=== PATIENT | female | born 1965 | race Caucasian/White ===

== ENCOUNTER 2020-04-23 12:42 | Outpatient (CLI) | payer OTHER, MEDICAID, SELFPAY ==
[2020-04-23 13:25] LABS: Basophils Percent Auto 0.6 % (0.2-1.2); Eosinophils Absolute Auto 0.2 K/mm3 (0-0.3); Eosinophils Percent Auto 3.3 % (0-4.4); Hematocrit 41.5 % (37.0-47.0); Hemoglobin 13.1 g/dL (12.0-15.0); Immature Granulocyte Absolute 0.01 K/mm3 (0.00-0.031); Immature Granulocyte Percent A 0.2 % (0-0.5); Lymphocytes Absolute Auto 2.42 K/mm3 (0.9-3.2); Lymphocytes Percent Auto 36.7 % (18.3-44.2); Mean Corpuscular HGB Conc 31.6 g/dl (32-36); Mean Corpuscular Hemoglobin 28.4 pg (26-34); Mean Corpuscular Volume 89.8 fl (80-100); Mean Platelet Volume 10.2 fl (7.4-10.4); Monocytes Absolute Auto 0.3 K/mm3 (0.1-0.6); Monocytes Percent Auto 4.8 % (2.6-8.5); Neutrophils Absolute Auto 3.6 K/mm3 (1.3-6.7); Neutrophils Percent Auto 54.4 % (45.5-73.1); Platelet Count Result 354 k/mm3 (150-375); Red Blood Count 4.62 M/mm3 (4.2-5.4); Red Cell Distribution Width 14.1 % (11.5-14.5); White Blood Count 6.6 K/mm3 (4.5-10.0)
[2020-04-23 13:42] LABS: Alanine Aminotransferase 12 U/L (4-35); Albumin Level 4.3 g/dL (3.5-5.1); Alkaline Phosphatase 77 U/L (38-126); Aspartate Amino Transferase 24 U/L (14-36); Bilirubin,Total 0.3 mg/dL (0.2-1.3); Blood Urea Nitrogen 21 mg/dL (7-17); Calcium 9.3 mg/dL (8.4-10.2); Carbon Dioxide 33 mmol/L (22-30); Chloride 100 mmol/L (98-107); Cholesterol 198 mg/dL (0-200); Estimated Glomerular Filt Rate > 60; Glucose 96 mg/dL (65-105); HDL Direct 68 mg/dL; Potassium 3.9 mmol/L (3.4-5.0); Sodium 141 mmol/L (137-145); Triglycerides 96 mg/dL (<150)
[2020-04-23 13:52] LABS: LDL Cholesterol Direct 100 mg/dL
[2020-04-23 14:07] LABS: Vitamin D 25 Hydroxy 24.5 ng/mL
[2020-04-23 14:10] LABS: Thyroid Stimulating Hormone 0.603 uIU/mL (0.465-4.680)
== END 2020-04-23 12:43 | disposition home or self-care (01) ==
PROVIDERS: PCP Internal Medicine; Visit Provider Internal Medicine
DX: I10 Essential (primary) hypertension (principal); E78.5 Hyperlipidemia, unspecified; E55.9 Vitamin D deficiency, unspecified
CPT/HCPCS: 36415; 80053; 80061; 82306; 84443; 85025

== ENCOUNTER 2020-08-11 00:13 | Outpatient (CLI) | payer OTHER, MEDICAID, SELFPAY ==
[2020-08-11 18:29] LABS: SARS-CoV-2 RNA PCR Negative
== END 2020-08-11 00:14 | disposition home or self-care (01) ==
LOC: ANHCOVIDDT 00:13
PROVIDERS: PCP Internal Medicine; Visit Provider Internal Medicine Gastroenterology
DX: Z01.812 Encounter for preprocedural laboratory examination (principal); Z20.828 Contact with and (suspected) exposure to other viral communicable diseases
CPT/HCPCS: 87635; C9803; U0003

== ENCOUNTER 2020-08-13 03:56 | Day surgery (SDC) | payer OTHER, MEDICAID, SELFPAY ==
[2020-06-15 13:19] VITALS: BMI 28.5
[2020-08-05 14:01] VITALS: BMI 28.3
[2020-08-13 06:46] VITALS: BP 129/82; PULSE 96; RESP 18; TEMP 37.3; O2SAT 100; BMI 30.1
[2020-08-13] MEDS: LACTATED RINGERS 1,000 ML 150 ML IV CONT (07:01)
--- NOTE | 2020-08-13 07:07 | WPDANESEPPF ---
Anes - Initial Pre Proc Eval Procedure: Operation Date: 08/13/20 07:30 Proposed Procedures p Screening Colonoscopy - Marty Padilla MD Date/Time: 08/13/20 07:07 Surgeon: Marty Padilla MD Pre Op Diagnosis: Neoplasm Screening Patient Data Age: 54 Gender: F Height: 5 ft 4 in Weight: 79.7 kg Last Vital Signs Temp 99.1 F 08/13/20 06:46 Pulse 96 08/13/20 06:46 Resp 18 08/13/20 06:46 BP 129/82 08/13/20 06:46 Pulse Ox 100 08/13/20 06:46 Allergies Allergy/AdvReac Type Severity Reaction Status Date / Time No Known Allergies Verified 08/13/20 06:43 Home Medications Medication Instructions Recorded Confirmed Type cetirizine 10 mg capsule 10 mg PO DAILY 03/22/20 08/13/20 History multivitamin 1 tablet PO DAILY 03/22/20 08/13/20 History cholecalciferol (vitamin D3) 25 2,000 unit PO DAILY cap 04/27/20 08/13/20 History mcg (1,000 unit) capsule gabapentin 100 mg capsule 100 mg PO QID #360 cap 04/27/20 08/05/20 Rx cyclobenzaprine 10 mg tablet See Rx Instructions .ROUTE 07/07/20 08/05/20 Rx .COMPLEX #120 tablet eszopiclone 3 mg tablet 3 mg PO .qhs #30 tablet 07/07/20 08/13/20 Rx losartan 50 mg-hydrochlorothiazide See Rx Instructions .ROUTE 07/07/20 08/05/20 Rx 12.5 mg tablet .COMPLEX #90 tablet Patient hx anesthesia problems: none Family hx anesthesia problems: none PMFSH Past Medical History Medical History (Updated 08/13/20 @ 07:07 by Armand Scott MD) Anxiety Asthma Essential hypertension Family History Family History (Updated 03/07/18 @ 12:55 by DOCTOR UNKNOWN) Grandparent Hypertension Family history of arthritis Family history of malignant neoplasm of breast in first degree relative Mother Patient's mother is in good health Social History Social History Smoking status: Never smoker Alcohol intake: current Living arrangements: alone Anes - Eval Final PreProcedure Day of Procedure 08/13/20 07:07 Patient weight: overweight Heart: regular rate and rhythm Lungs: clear to auscultation Airway: Mallampati scale class II Neurological: alert and oriented Last oral intake: >/= 8 hours ASA classification: II Emergent: no Anesthetic plan: proceed Anesthesia type and monitoring: general GIVS and standard monitoring Informed Consent: The patient's anesthetic plan and its attendant risks and benefits were discussed with the patient/family/POA. Questions were solicited and answers provided to the satisfaction of the patient/family/POA.
--- NOTE | 2020-08-13 07:15 | PM.HPGS ---
History of Present Illness History of Present Illness Consent: Risks, benefits, and alternatives have been discussed and questions answered. Patient agrees to proceed with procedure. Chief complaint: Neoplasm Screening Narrative: Barbie Lovett is a 54 year old female Here for screening colonoscopy [facility] Past Medical History Medical History (Updated 08/13/20 @ 07:07 by Armand Scott MD) Anxiety Asthma Essential hypertension Family History Family History Grandparent Hypertension Family history of arthritis Family history of malignant neoplasm of breast in first degree relative Mother Patient's mother is in good health Social History Social History Smoking status: Never smoker Alcohol intake: current Living arrangements: alone Meds Home Medications and Allergies Home Medications Medication Instructions Recorded Confirmed Type cetirizine 10 mg capsule 10 mg PO DAILY 03/22/20 08/13/20 History multivitamin 1 tablet PO DAILY 03/22/20 08/13/20 History cholecalciferol (vitamin D3) 25 2,000 unit PO DAILY cap 04/27/20 08/13/20 History mcg (1,000 unit) capsule gabapentin 100 mg capsule 100 mg PO QID #360 cap 04/27/20 08/05/20 Rx cyclobenzaprine 10 mg tablet See Rx Instructions .ROUTE 07/07/20 08/05/20 Rx .COMPLEX #120 tablet eszopiclone 3 mg tablet 3 mg PO .qhs #30 tablet 07/07/20 08/13/20 Rx losartan 50 mg-hydrochlorothiazide See Rx Instructions .ROUTE 07/07/20 08/05/20 Rx 12.5 mg tablet .COMPLEX #90 tablet Allergies Allergy/AdvReac Type Severity Reaction Status Date / Time No Known Allergies Verified 08/13/20 06:43 Vital Signs Vital Signs - 24 hr 08/13/20 06:46 Temperature 37.3 C Pulse Rate 96 Respiratory Rate 18 Blood Pressure 129/82 Pulse Oximetry 100 Exam Resp: Auscultation: clear to auscultation bilaterally Cardio: Rate: regular rate Rhythm: regular rhythm GI: GI Palp: Yes Soft to palpation and No Tenderness to palpation present (GI) Assessment and Plan Assessment and plan (1) Encounter for screening colonoscopy: Code(s): Z12.11 - Encounter for screening for malignant neoplasm of colon Status: Acute Assessment and Plan: Colonoscopy with possible biopsy or polypectomy or cautery or injection of substances.
[2020-08-13 07:43] VITALS: BP 132/79; PULSE 87; RESP 19; O2SAT 100
[2020-08-13 07:53] VITALS: BP 119/76; PULSE 83; RESP 19; O2SAT 100
[2020-08-13 08:03] VITALS: BP 129/76; PULSE 87; RESP 19; O2SAT 100
== END 2020-08-13 08:21 | disposition home or self-care (01) ==
PROVIDERS: PCP Internal Medicine; Visit Provider Internal Medicine Gastroenterology
PROC: 0DJD8ZZ Inspection of Lower Intestinal Tract, Via Natural or Artificial Opening Endoscopic (ICD-10-PCS; CPT 45378; principal; 2020-08-13 07:30)
DX: Z12.11 Encounter for screening for malignant neoplasm of colon (principal); I10 Essential (primary) hypertension; J45.909 Unspecified asthma, uncomplicated; F41.9 Anxiety disorder, unspecified
CPT/HCPCS: 45378; J2704; J7120